=== PATIENT | female | born 1960 | race Caucasian/White ===

== ENCOUNTER → 2024-02-15 17:51 | Outpatient (REF) | payer MEDICAID, MEDICARE, OTHER, SELFPAY | LOC: WDC 17:51 | PROVIDERS: ATTENDING PHYSICIAN Family Medicine | DX: Z12.31 Encounter for screening mammogram for malignant neoplasm of breast (principal) | CPT/HCPCS: 77063; 77067 ==

== ENCOUNTER → 2024-03-05 08:03 | Outpatient (REF) | payer MEDICARE, OTHER, SELFPAY | LOC: RAD 08:03 | PROVIDERS: ATTENDING PHYSICIAN Physician Assistant; FAMILY PHYSICIAN Family Medicine | DX: E04.2 Nontoxic multinodular goiter (principal) | CPT/HCPCS: 76536 ==

== ENCOUNTER → 2024-06-28 10:23 | Outpatient (REF) | payer MEDICARE, OTHER, SELFPAY | LOC: RAD 10:23 | PROVIDERS: ATTENDING PHYSICIAN Physician Assistant; FAMILY PHYSICIAN Family Medicine | DX: R04.2 Hemoptysis (principal) | CPT/HCPCS: 76536 ==

== ENCOUNTER → 2024-08-29 12:24 | Outpatient (REF) | payer MEDICARE, SELFPAY ==
[2024-08-29 13:05] VITALS: BP 154/90; BP_SYST 80
== END ==
LOC: RADI 12:24
PROVIDERS: ATTENDING PHYSICIAN Physician Assistant; FAMILY PHYSICIAN Family Medicine
DX: E04.2 Nontoxic multinodular goiter (principal)
CPT/HCPCS: 88173; 10005; 10006

== ENCOUNTER → 2024-10-20 11:24 | Outpatient (REF) | payer MEDICARE, SELFPAY | LOC: PAVMRI 11:24 | PROVIDERS: ATTENDING PHYSICIAN Physician Assistant Medical; FAMILY PHYSICIAN Family Medicine | DX: M25.561 Pain in right knee (principal) | CPT/HCPCS: 73721 ==

== ENCOUNTER 2024-11-12 09:40 | Outpatient (RCR) | payer MEDICARE, SELFPAY | END 2024-11-12 23:59 | disposition home or self-care (01) | LOC: RPT 09:40 | PROVIDERS: ATTENDING PHYSICIAN Physician Assistant Medical; FAMILY PHYSICIAN Family Medicine | DX: M17.11 Unilateral primary osteoarthritis, right knee (principal); M76.31 Iliotibial band syndrome, right leg; M70.51 Other bursitis of knee, right knee; Z73.6 Limitation of activities due to disability; R26.89 Other abnormalities of gait and mobility | CPT/HCPCS: 97110; 97140; 97162 ==

== ENCOUNTER 2024-11-28 09:25 | Outpatient (RCR) | payer MEDICARE, SELFPAY | END 2024-11-28 23:59 | disposition home or self-care (01) | LOC: RPT 09:25 | PROVIDERS: ATTENDING PHYSICIAN Physician Assistant Medical; FAMILY PHYSICIAN Family Medicine | DX: M17.11 Unilateral primary osteoarthritis, right knee (principal); M76.31 Iliotibial band syndrome, right leg; M70.51 Other bursitis of knee, right knee; R26.2 Difficulty in walking, not elsewhere classified; Z73.6 Limitation of activities due to disability; R26.89 Other abnormalities of gait and mobility | CPT/HCPCS: 97110; 97140; 97530 ==

== ENCOUNTER 2025-01-07 10:57 | Outpatient (RCR) | payer MEDICARE, SELFPAY | END 2025-01-07 23:59 | disposition home or self-care (01) | LOC: RPT 10:57 | PROVIDERS: ATTENDING PHYSICIAN Physician Assistant Medical; FAMILY PHYSICIAN Family Medicine | DX: M17.11 Unilateral primary osteoarthritis, right knee (principal); M76.31 Iliotibial band syndrome, right leg; M70.51 Other bursitis of knee, right knee; R26.2 Difficulty in walking, not elsewhere classified; Z73.6 Limitation of activities due to disability; R26.89 Other abnormalities of gait and mobility | CPT/HCPCS: 97110; 97140 ==

== ENCOUNTER → 2025-01-11 13:23 | Outpatient (REF) | payer MEDICARE, SELFPAY | LOC: RAD 13:23 | PROVIDERS: ATTENDING PHYSICIAN Family Medicine; FAMILY PHYSICIAN Family Medicine | DX: N95.0 Postmenopausal bleeding (principal) | CPT/HCPCS: 76830; 76856 ==

== ENCOUNTER 2025-01-28 09:55 | Outpatient (RCR) | payer MEDICARE, SELFPAY | END 2025-01-31 10:56 | disposition home or self-care (01) | LOC: RPT 09:55 | PROVIDERS: ATTENDING PHYSICIAN Physician Assistant Medical; FAMILY PHYSICIAN Family Medicine | DX: M17.11 Unilateral primary osteoarthritis, right knee (principal); M76.31 Iliotibial band syndrome, right leg; M70.51 Other bursitis of knee, right knee; R26.2 Difficulty in walking, not elsewhere classified; Z73.6 Limitation of activities due to disability; R26.89 Other abnormalities of gait and mobility | CPT/HCPCS: 97110; 97112; 97140 ==